=== PATIENT | male | born 1995 | race African-American/Black ===

== ENCOUNTER 2017-09-07 11:02 | Emergency (ER) | payer OTHER ==
[~2017-09-07] VITALS: Ht 190.5 cm; Wt 81.8 kg
[2017-09-07 11:02] VITALS: BP 133/74
[2017-09-07] MEDS ORDERED: AUGM875T28 PO (12:28)
[2017-09-07] MEDS ORDERED: DERMABOND TOPICAL SKIN ADHESIVE TOP ONE (12:45)
--- NOTE | 2017-09-07 12:54 | REP ---
LEFT FIFTH FINGER SERIES: 09/07/2017. Clinical history: Trauma. Findings: There is a transverse fracture through the proximal metaphysis of the distal phalanx of the fifth digit. There is apex dorsal angulation. The fracture appears open. There is no involvement of the DIP joint. No other finding. No radiopaque foreign body. Impression: 1. Transverse metaphyseal fracture with dorsal apex angulation through the proximal metaphysis of the distal phalanx of the fifth digit. The fracture appears open. Signed by Harpreet Soliman MD 09/07/2017 05:34 P
== END 2017-09-07 12:54 | disposition home or self-care (01) ==
LOC: M ED 11:02
DX: S62.637A Displaced fracture of distal phalanx of left little finger, initial encounter for closed fracture (principal); X58.XXXA Exposure to other specified factors, initial encounter; Y92.9 Unspecified place or not applicable; Y99.9 Unspecified external cause status; Y93.9 Activity, unspecified

== ENCOUNTER 2018-10-01 15:22 | Emergency (ER) | payer OTHER, SELFPAY ==
[2018-10-01 16:29] LABS: KETONE, URINE AUTO RFX NEGATIVE (NEGATIVE); LEUKOCYTE ESTERASE UR AUTO RFX NEGATIVE (NEGATIVE); MUCUS, URINE RFX SMALL (NEGATIVE); NITRITE, URINE AUTO RFX NEGATIVE (NEGATIVE); RBC, URINE AUTO RFX 1 /HPF (0-3); SPECIFIC GRAVITY UR AUTO RFX 1.023 (1.002-1.035); SQUAM EPITHELIAL CELL UR AURFX 0 /HPF (0-6); WBC, URINE AUTO RFX 1 /HPF (0-3)
[2018-10-01 19:06] LABS: CHLAMYDIA DNA AMPLIFICATION POSITIVE (NEGATIVE); GC DNA AMPLIFICATION NEGATIVE (NEGATIVE)
== END 2018-10-01 17:55 | disposition left against medical advice (07) ==
LOC: M ED 15:22
DX: Z20.2 Contact with and (suspected) exposure to infections with a predominantly sexual mode of transmission (principal); Z53.21 Procedure and treatment not carried out due to patient leaving prior to being seen by health care provider

== ENCOUNTER 2018-10-02 10:18 | Emergency (ER) | payer OTHER ==
[2018-10-02] MEDS: AZITHROMYCIN 250 MG TAB PO (11:00)
[2018-10-02] MEDS: cefTRIAXone SOD 250 MG VIAL (J0696) IM (11:04)
[2018-10-02 11:05] LABS: KETONE, URINE AUTO RFX NEGATIVE (NEGATIVE); LEUKOCYTE ESTERASE UR AUTO RFX NEGATIVE (NEGATIVE); MUCUS, URINE RFX SMALL (NEGATIVE); NITRITE, URINE AUTO RFX NEGATIVE (NEGATIVE); RBC, URINE AUTO RFX 0 /HPF (0-3); SPECIFIC GRAVITY UR AUTO RFX 1.027 (1.002-1.035); SQUAM EPITHELIAL CELL UR AURFX 0 /HPF (0-6); WBC, URINE AUTO RFX 2 /HPF (0-3)
[2018-10-02 13:00] LABS: CHLAMYDIA DNA AMPLIFICATION POSITIVE (NEGATIVE); GC DNA AMPLIFICATION NEGATIVE (NEGATIVE)
== END 2018-10-02 11:24 | disposition home or self-care (01) ==
LOC: M ED 10:18
DX: Z20.2 Contact with and (suspected) exposure to infections with a predominantly sexual mode of transmission (principal); R30.0 Dysuria; Z79.899 Other long term (current) drug therapy
CPT/HCPCS: J0696